=== PATIENT | female | born 1975 | race Caucasian/White ===

== ENCOUNTER → 2016-09-29 | Outpatient (CLI) | payer OTHER ==
[2016-09-29 13:51] LABS: BASO % 0.6 % (0.0-1.0); EOS # 0.2 K/mm3 (0.0-0.50); EOS % 3.5 % (0.0-3.0); LARGE UNSTAINED CELL # 0.1 K/mm3 (0.0-0.4); LARGE UNSTAINED CELL % 1.5 % (0.0-4.0); LYMPH # 2.3 K/mm3 (1.5-4.5); LYMPH % 32.6 % (24.0-44.0); MEAN CORPUSCULAR HEMOGLOBIN 32.6 pg (27.0-33.0); MEAN CORPUSCULAR HGB CONC 32.7 g/dl (32.0-36.5); MEAN CORPUSCULAR VOLUME 99.4 fl (80.0-96.0); MONO # 0.4 K/mm3 (0.0-0.8); MONO % 5.8 % (0.0-5.0); NEUTROPHILS # 3.8 K/mm3 (1.8-7.7); NEUTROPHILS % 56.2 % (36.0-66.0); PLATELET COUNT, AUTOMATED 221 k/mm3 (150-450); RED CELL DISTRIBUTION WIDTH 13.4 % (11.5-14.5); WHITE BLOOD COUNT 6.8 K/mm3 (4.0-10.0)
[2016-09-29 14:06] LABS: ALBUMIN 3.6 GM/DL (3.2-5.2); ALKALINE PHOSPHATASE 66 U/L (45-117); ALT/SGPT 17 U/L (12-78); ANION GAP 8 MEQ/L (8-16); AST/SGOT 14 U/L (15-37); BILIRUBIN,TOTAL 0.7 MG/DL (0.2-1.0); BLOOD UREA NITROGEN 14 MG/DL (7-18); CALCIUM LEVEL 8.5 MG/DL (8.5-10.1); CARBON DIOXIDE LEVEL 26 MEQ/L (21-32); CHLORIDE LEVEL 112 MEQ/L (98-107); CHOLESTEROL LEVEL 157 MG/DL (<200); CREATININE FOR GFR 0.88 MG/DL (0.55-1.02); GLOMERULAR FILTRATION RATE > 60.0 (>60); GLUCOSE, FASTING 82 MG/DL (70-105); POTASSIUM SERUM 4.9 MEQ/L (3.5-5.1); SODIUM LEVEL 146 MEQ/L (136-145); TOTAL PROTEIN 6.6 GM/DL (6.4-8.2); TRIGLYCERIDES LEVEL 85 MG/DL (<150)
== END ==
LOC: M WUC 09:20
PROVIDERS: ATTEND Physician Assistant Medical
DX: Z13.29 Encounter for screening for other suspected endocrine disorder (principal); Z13.0 Encounter for screening for diseases of the blood and blood-forming organs and certain disorders involving the immune mechanism; Z13.220 Encounter for screening for lipoid disorders

== ENCOUNTER → 2016-10-18 | Outpatient (REF) | payer OTHER | LOC: M LAB REF 09:30 | PROVIDERS: ATTEND Family Medicine | DX: Z12.4 Encounter for screening for malignant neoplasm of cervix (principal) ==

== ENCOUNTER → 2016-10-24 | Outpatient (CLI) | payer OTHER ==
--- NOTE | 2016-10-24 18:43 | REP ---
CAROTID DUPLEX ULTRASOUND: 10/24/2016: Clinical history: Left carotid bruit is suspected. Comparison: None. Findings: The right common carotid shows small amount of intimal thickening and some minimal soft plaque. The left common carotid also shows some minimal intimal thickening and trace amounts of soft plaque. No calcific plaque or shadowing noted. Peak velocities: CCA systolic right 1.39 left 1.22 M/S ICA systolic right 0.90 left 1.19 M/S ICA diastolic right 0.26 left 0.38 M/S ECA systolic right 1.38 left 1.23 M/SIC/CC ratio 0.65 right 0.98 left Cranial direction of flow seen in the vertebral arteries bilaterally. The Doppler waveform analysis shows no spectral broadening or filling of the systolic window. Impression: 1. Only minimal carotid disease with small amounts of scattered soft plaque and intimal thickening. No hemodynamically significant or flow restricting lesion identified. No calcific plaque. 2. Cranial direction of flow of vertebral arteries. Signed by Yan Crawley MD 10/27/2016 05:16 P
== END ==
LOC: M RAD 11:41
PROVIDERS: ATTEND Family Medicine
DX: R09.89 Other specified symptoms and signs involving the circulatory and respiratory systems (principal)

== ENCOUNTER → 2016-10-27 | Outpatient (REF) | payer OTHER | LOC: M LAB REF 15:28 | PROVIDERS: ATTEND Physician Assistant Medical | DX: N39.0 Urinary tract infection, site not specified (principal) ==

== ENCOUNTER → 2017-02-16 | Outpatient (REF) | payer OTHER | LOC: M LAB REF 15:23 | DX: R30.0 Dysuria (principal) ==

== ENCOUNTER → 2017-12-31 | Outpatient (CLI) | payer OTHER | LOC: M WUC 08:34 | DX: M51.87 Other intervertebral disc disorders, lumbosacral region (principal); M12.88 Other specific arthropathies, not elsewhere classified, other specified site; M54.5 Low back pain | CPT/HCPCS: 72110 ==

== ENCOUNTER → 2018-03-08 | Outpatient (CLI) | payer OTHER ==
[2018-03-08 12:21] LABS: BASO % 0.4 % (0.0-1.0); EOS # 0.2 10^3/uL (0.0-0.50); EOS % 1.5 % (0.0-3.0); HEMATOCRIT 40.6 % (36.0-47.0); HEMOGLOBIN 13.7 g/dl (12.0-15.5); LYMPH # 3.3 10^3/uL (1.5-4.5); LYMPH % 31.1 % (24.0-44.0); MEAN CORPUSCULAR HEMOGLOBIN 32.7 pg (27.0-33.0); MEAN CORPUSCULAR HGB CONC 33.7 g/dl (32.0-36.5); MEAN CORPUSCULAR VOLUME 96.9 fl (80.0-96.0); MONO # 0.7 10^3/uL (0.0-0.8); MONO % 6.2 % (0.0-5.0); NEUTROPHILS # 6.4 10^3/uL (1.8-7.7); NEUTROPHILS % 60.4 % (36.0-66.0); PLATELET COUNT, AUTOMATED 246 10^3/uL (150-450); RED BLOOD COUNT 4.19 10^6/uL (4.00-5.40); WHITE BLOOD COUNT 10.6 10^3/uL (4.0-10.0)
[2018-03-08 12:29] LABS: ALBUMIN 4.1 GM/DL (3.2-5.2); ALT/SGPT 23 U/L (12-78); BILIRUBIN,TOTAL 0.6 MG/DL (0.2-1.0); BLOOD UREA NITROGEN 15 MG/DL (7-18); CALCIUM LEVEL 9.2 MG/DL (8.5-10.1); CARBON DIOXIDE LEVEL 25 MEQ/L (21-32); CHLORIDE LEVEL 110 MEQ/L (98-107); CHOLESTEROL LEVEL 186 MG/DL (<200); CHOLESTEROL RISK RATIO 3.444 (<5); CREATININE FOR GFR 0.92 MG/DL (0.55-1.30); GLOMERULAR FILTRATION RATE > 60.0 (>58); GLUCOSE, FASTING 86 MG/DL (70-100); HDL CHOLESTEROL 54 MG/DL (>40); LDL CHOLESTEROL 116 MG/DL (<100); NON-HDL-C 132 MG/DL; POTASSIUM SERUM 4.9 MEQ/L (3.5-5.1); SODIUM LEVEL 140 MEQ/L (136-145); TOTAL PROTEIN 7.1 GM/DL (6.4-8.2); TRIGLYCERIDES LEVEL 82 MG/DL (<150)
== END ==
LOC: M SMT 08:46
PROVIDERS: ATTEND Family Medicine
DX: Z13.0 Encounter for screening for diseases of the blood and blood-forming organs and certain disorders involving the immune mechanism (principal); Z13.29 Encounter for screening for other suspected endocrine disorder; Z13.220 Encounter for screening for lipoid disorders

== ENCOUNTER → 2018-09-18 | Outpatient (CLI) | payer OTHER ==
--- NOTE | 2018-09-18 10:30 | REP ---
Clinical: Pain. Possible tendon rupture. Technique: AP, lateral, bilateral oblique and sunrise views of the left knee. Findings: Early moderate tricompartmental osteoarthritic degenerative changes include subchondral sclerosis to the tibial plateau and posterior patellar margin with associated joint space narrowing and osteophytosis. No obvious calcified loose bodies or chondrocalcinosis. No definite effusion. No acute fracture. Comer view demonstrates fraying along the anterior patellar margin consistent with tendinopathy. 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 Electronically Signed by Lucas Leija MD 09/18/2018 10:21 A
== END ==
LOC: M WUC 09:45
PROVIDERS: ATTEND Chiropractor
DX: M17.12 Unilateral primary osteoarthritis, left knee (principal); M65.862 Other synovitis and tenosynovitis, left lower leg

== ENCOUNTER → 2019-06-20 | Outpatient (CLI) | payer OTHER | LOC: M LABSMTC 12:36 | PROVIDERS: ATTEND Family Medicine | DX: Z11.59 Encounter for screening for other viral diseases (principal); Z20.828 Contact with and (suspected) exposure to other viral communicable diseases ==

== ENCOUNTER → 2019-10-29 | Outpatient (CLI) | payer OTHER ==
--- NOTE | 2019-11-17 17:31 | REP ---
RIGHT KNEE SERIES CLINICAL: Contusion. TECHNIQUE: AP, lateral, bilateral oblique, and sunrise views of the right knee. FINDINGS: Early advanced tricompartmental osteoarthritic degenerative changes are appreciated. No obvious acute fracture or dislocation. No effusion. IMPRESSION: Tricompartmental osteoarthritic changes. No obvious acute fracture or dislocation. MTDD
--- NOTE | 2019-11-17 17:32 | REP ---
LEFT HAND SERIES CLINICAL: Contusion. TECHNIQUE: AP, lateral, bilateral oblique views of the left hand. FINDINGS: Age-related degenerative changes are appreciated. No acute fracture or dislocation. No subcutaneous emphysema or foreign body. IMPRESSION: Generalized age-related degenerative changes. No acute fracture or dislocation appreciated. MTDD
--- NOTE | 2019-11-17 17:32 | REP ---
LEFT WRIST SERIES CLINICAL: Contusion. TECHNIQUE: AP, lateral, bilateral oblique views of the left wrist. FINDINGS: Generalized age-related changes are appreciated. No acute fracture or dislocation. No subcutaneous emphysema for foreign body. IMPRESSION: No obvious acute fracture or dislocation. If the patient remains symptomatic, consider reevaluation in three to five days including scaphoid view if necessary. BUNNYD
== END ==
LOC: M WUC 09:12
PROVIDERS: ATTEND Physician Assistant
DX: S60.212A Contusion of left wrist, initial encounter (principal); S80.01XA Contusion of right knee, initial encounter; Y92.9 Unspecified place or not applicable; Y93.9 Activity, unspecified; Y99.9 Unspecified external cause status

== ENCOUNTER 2020-06-19 15:33 | Emergency (ER) | payer OTHER ==
[~2020-06-19] VITALS: Ht 175.3 cm; Wt 104.5 kg
--- NOTE | 2020-06-19 16:22 | REP ---
INDICATION: rolled [employer] COMPARISON: None. TECHNIQUE: AP, lateral, bilateral oblique views. FINDINGS: Soft tissue swelling. Generalized age-related changes. A corticated bony fragment is identified at the tip of the medial malleolus which should be correlated with physical examination and point of tenderness as acute versus old fracture cannot be differentiated. IMPRESSION: Soft tissue swelling. Cannot exclude small acute versus chronic medial malleolar fracture. <Electronically signed by Lucas Leija > 06/19/20 [id number]
--- NOTE | 2020-06-19 16:23 | REP ---
INDICATION: rolled ankle pain above COMPARISON: None. TECHNIQUE: AP and lateral views of the left tibia/fibula. FINDINGS: Degenerative changes at the knee and ankle joint noted. No obvious acute fracture or dislocation identified. IMPRESSION: No obvious acute fracture or dislocation identified. <Electronically signed by Lucas Leija > 06/19/20 [id number]
[2020-06-19 18:02] VITALS: BP 151/83
== END 2020-06-19 18:12 | disposition home or self-care (01) ==
LOC: M ED 15:33
DX: S82.55XA Nondisplaced fracture of medial malleolus of left tibia, initial encounter for closed fracture (principal); M25.572 Pain in left ankle and joints of left foot; X50.1XXA Overexertion from prolonged static or awkward postures, initial encounter; Y92.89 Other specified places as the place of occurrence of the external cause; Y93.9 Activity, unspecified; Y99.0 Civilian activity done for income or pay; Z88.8 Allergy status to other drugs, medicaments and biological substances

== ENCOUNTER → 2020-07-08 | Outpatient (CLI) | payer OTHER ==
--- NOTE | 2020-07-09 01:23 | REP ---
INDICATION: F/U. COMPARISON: 06/19/2020 TECHNIQUE: AP, lateral, bilateral oblique views of the left ankle. FINDINGS: Corticated fragment at the medial malleolus and tiny fragment not visible on prior examination along the lateral aspect of the calcaneus just below the fibular tip identified. Underlying chronic age-related changes noted. The above-mentioned fragments may represent subtle subacute versus chronic changes. No obvious acute fracture identified. Ankle mortise appears stable. IMPRESSION: Degenerative changes and possible old (less likely representing subacute) fracture. <Electronically signed by Lucas Leija > 07/09/20 [id number]
== END ==
LOC: M SOG 14:10
PROVIDERS: ATTEND Orthopaedic Surgery Sports Medicine
DX: S93.432D Sprain of tibiofibular ligament of left ankle, subsequent encounter (principal); X58.XXXD Exposure to other specified factors, subsequent encounter; Y92.9 Unspecified place or not applicable

== ENCOUNTER → 2021-01-24 | Outpatient (REF) | payer OTHER | LOC: M LAB REF 19:01 | PROVIDERS: ATTEND Family Medicine | DX: J06.9 Acute upper respiratory infection, unspecified (principal) ==

== ENCOUNTER 2021-03-28 10:58 | Emergency (ER) | payer OTHER ==
[~2021-03-28] VITALS: Ht 175.3 cm; Wt 104.5 kg
[2021-03-28 12:17] LABS: BASO # 0.1 10^3/uL (0.0-0.2); BASO % 0.5 % (0.0-1.0); EOS # 0.3 10^3/uL (0.0-0.5); EOS % 3.4 % (0.0-3.0); HEMATOCRIT 39.6 % (36.0-47.0); HEMOGLOBIN 12.9 g/dl (12.0-15.5); LYMPH # 2.3 10^3/uL (1.5-5.0); LYMPH % 25.2 % (24.0-44.0); MEAN CORPUSCULAR HEMOGLOBIN 32.2 pg (27.0-33.0); MEAN CORPUSCULAR HGB CONC 32.6 g/dl (32.0-36.5); MEAN CORPUSCULAR VOLUME 98.8 fl (80.0-96.0); MONO # 0.6 10^3/uL (0.0-0.8); MONO % 6.8 % (2.0-8.0); NEUTROPHILS # 5.9 10^3/uL (1.5-8.5); NEUTROPHILS % 63.8 % (36.0-66.0); PLATELET COUNT, AUTOMATED 248 10^3/uL (150-450); RED BLOOD COUNT 4.01 10^6/uL (4.00-5.40); WHITE BLOOD COUNT 9.2 10^3/uL (4.0-10.0)
[2021-03-28 12:44] LABS: ALBUMIN 3.4 GM/DL (3.2-5.2); ALT/SGPT 18 U/L (12-78); BILIRUBIN,TOTAL 0.2 MG/DL (0.2-1.0); BLOOD UREA NITROGEN 10 MG/DL (7-18); CALCIUM LEVEL 8.9 MG/DL (8.5-10.1); CARBON DIOXIDE LEVEL 27 MEQ/L (21-32); CHLORIDE LEVEL 112 MEQ/L (98-107); CREATININE FOR GFR 0.82 MG/DL (0.55-1.30); GLOMERULAR FILTRATION RATE > 60.0 (>58); GLUCOSE, FASTING 104 MG/DL (70-100); POTASSIUM SERUM 3.9 MEQ/L (3.5-5.1); SODIUM LEVEL 144 MEQ/L (136-145); TOTAL PROTEIN 6.4 GM/DL (6.4-8.2)
[2021-03-28] MEDS ORDERED: MECLIZINE 25 MG TABLET PO ONE (12:45)
[2021-03-28 12:52] LABS: HCG, SERUM QUALITATIVE NEGATIVE (NEGATIVE)
[2021-03-28 17:45] VITALS: BP 140/72
[2021-03-28] MEDS ORDERED: MECL1TAB31 PO (18:05)
== END 2021-03-28 18:28 | disposition home or self-care (01) ==
LOC: M ED 10:58
DX: R42 Dizziness and giddiness (principal); F17.200 Nicotine dependence, unspecified, uncomplicated; Z88.8 Allergy status to other drugs, medicaments and biological substances

== ENCOUNTER 2023-02-04 13:54 | Emergency (ER) | payer OTHER ==
[~2023-02-04] VITALS: Ht 175.3 cm; Wt 109.1 kg
[~2023-02-04 13:54] MED LIST: MECL-209 PO
[2023-02-04 13:55] VITALS: TEMP 97.9
[2023-02-04 14:27] LABS: BASO # 0.1 10^3/uL (0.0-0.2); BASO % 0.7 % (0.0-1.0); EOS # 0.2 10^3/uL (0.0-0.5); EOS % 2.1 % (0.0-3.0); HEMATOCRIT 39.1 % (36.0-47.0); HEMOGLOBIN 13.1 g/dl (12.0-15.5); LYMPH # 3.1 10^3/uL (1.5-5.0); LYMPH % 31.5 % (24.0-44.0); MEAN CORPUSCULAR HEMOGLOBIN 32.7 pg (27.0-33.0); MEAN CORPUSCULAR HGB CONC 33.5 g/dl (32.0-36.5); MEAN CORPUSCULAR VOLUME 97.5 fl (80.0-96.0); MONO # 0.5 10^3/uL (0.0-0.8); MONO % 5.4 % (2.0-8.0); NEUTROPHILS # 5.9 10^3/uL (1.5-8.5); PLATELET COUNT, AUTOMATED 292 10^3/uL (150-450); RED BLOOD COUNT 4.01 10^6/uL (4.00-5.40); WHITE BLOOD COUNT 9.8 10^3/uL (4.0-10.0)
[2023-02-04 14:38] LABS: INR 0.96; PROTHROMBIN TIME 12.5 SECONDS (12.5-14.5)
[2023-02-04 14:51] LABS: CK-MB VALUE MASS < 1.0 NG/ML (<3.6); LIPASE 28 U/L (12-53)
[2023-02-04 14:54] LABS: ALBUMIN 3.9 G/DL (3.2-5.2); ALKALINE PHOSPHATASE 83 U/L (46-116); ALT/SGPT 16 U/L (7.0-40); AST/SGOT 12 U/L (<34); BILIRUBIN,DIRECT 0.1 MG/DL (<0.4); BILIRUBIN,TOTAL 0.3 MG/DL (0.3-1.2); BLOOD UREA NITROGEN 14 MG/DL (9-23); CALCIUM LEVEL 9.1 MG/DL (8.5-10.1); CARBON DIOXIDE LEVEL 21 MMOL/L (20-31); CHLORIDE LEVEL 111 MMOL/L (98-107); CREATININE FOR GFR 0.73 MG/DL (0.55-1.30); GLOMERULAR FILTRATION RATE > 60.0 (>58); GLUCOSE, FASTING 91 MG/DL (60-100); POTASSIUM SERUM 4.1 MMOL/L (3.5-5.1); SODIUM LEVEL 142 MMOL/L (136-145); TOTAL PROTEIN 6.8 G/DL (5.7-8.2)
[2023-02-04 14:55] LABS: FREE T4 0.88 NG/DL (0.89-1.76)
[2023-02-04 14:56] LABS: THYROID STIMULATING HORMONE 2.121 uIU/ML (0.55-4.78)
[2023-02-04 15:09] LABS: CPK CREATINE PHOSPHOKINASE 71 U/L (34-145)
[2023-02-04 15:56] LABS: CK-MB VALUE MASS < 1.0 NG/ML (<3.6)
[2023-02-04 16:01] LABS: CPK CREATINE PHOSPHOKINASE 66 U/L (34-145); MB/CK RELATIVE INDEX 1.51 (< OR =4)
[2023-02-04] MEDS ORDERED: HOLTER MONITOR XX (16:26)
[2023-02-04 16:30] VITALS: BP 147/68; O2SAT 99
== END 2023-02-04 16:43 | disposition home or self-care (01) ==
LOC: M ED 13:54
DX: R42 Dizziness and giddiness (principal); R00.2 Palpitations; F17.200 Nicotine dependence, unspecified, uncomplicated; F10.10 Alcohol abuse, uncomplicated; Z88.8 Allergy status to other drugs, medicaments and biological substances

== ENCOUNTER → 2023-02-05 | Outpatient (CLI) | payer OTHER ==
[~2023-02-05] MED LIST changes: +HOLTER MONITOR XX
== END ==
LOC: M EKG 11:35
PROVIDERS: ATTEND Emergency Medicine
DX: R00.2 Palpitations (principal)

== ENCOUNTER → 2023-05-09 | Outpatient (CLI) | payer OTHER | LOC: M PLAIMG 13:32 | PROVIDERS: ATTEND Family Medicine | DX: R01.1 Cardiac murmur, unspecified (principal) ==

== ENCOUNTER → 2024-05-08 | Outpatient (CLI) | payer OTHER ==
[2024-05-08 15:14] LABS: BASO # 0.1 10^3/uL (0.0-0.2); BASO % 0.8 % (0.0-1.0); EOS # 0.3 10^3/uL (0.0-0.5); EOS % 3.1 % (0.0-3.0); HEMOGLOBIN 13.4 g/dl (12.0-15.5); LYMPH # 3.8 10^3/uL (1.5-5.0); LYMPH % 34.3 % (24.0-44.0); MEAN CORPUSCULAR HEMOGLOBIN 32.5 pg (27.0-33.0); MEAN CORPUSCULAR HGB CONC 32.7 g/dl (32.0-36.5); MEAN CORPUSCULAR VOLUME 99.5 fl (80.0-96.0); MONO # 0.8 10^3/uL (0.0-0.8); MONO % 7.6 % (2.0-8.0); NEUTROPHILS # 5.9 10^3/uL (1.5-8.5); NEUTROPHILS % 53.7 % (36.0-66.0); PLATELET COUNT, AUTOMATED 291 10^3/uL (150-450); RED BLOOD COUNT 4.12 10^6/uL (4.00-5.40)
[2024-05-08 15:20] LABS: ALBUMIN 3.7 G/DL (3.2-5.2); ALKALINE PHOSPHATASE 87 U/L (35-104); ALT/SGPT 13 U/L (7.0-40); AST/SGOT 10 U/L (<34); BILIRUBIN,TOTAL 0.5 MG/DL (0.3-1.2); BLOOD UREA NITROGEN 12 MG/DL (9-23); CALCIUM LEVEL 9.2 MG/DL (8.5-10.1); CARBON DIOXIDE LEVEL 25 MMOL/L (20-31); CHLORIDE LEVEL 110 MMOL/L (98-107); CHOLESTEROL LEVEL 177 MG/DL (<200); CHOLESTEROL RISK RATIO 4.51 (<5); CREATININE FOR GFR 0.82 MG/DL (0.55-1.30); GLOMERULAR FILTRATION RATE > 60.0 (>58); GLUCOSE, FASTING 91 MG/DL (60-100); HDL CHOLESTEROL 39.2 MG/DL (>40); LDL CHOLESTEROL 102.6 MG/DL (<100); NON-HDL-C 137.8 MG/DL; POTASSIUM SERUM 4.5 MMOL/L (3.5-5.1); SODIUM LEVEL 145 MMOL/L (136-145); TOTAL PROTEIN 6.8 G/DL (5.7-8.2); TRIGLYCERIDES LEVEL 176 MG/DL (<150)
[2024-05-08 15:25] LABS: THYROID STIMULATING HORMONE 2.477 uIU/ML (0.55-4.78)
[2024-05-08 15:26] LABS: FREE T4 0.97 NG/DL (0.89-1.76)
== END ==
LOC: M WUC 08:07
PROVIDERS: ATTEND Family Medicine
DX: Z13.220 Encounter for screening for lipoid disorders (principal); Z13.29 Encounter for screening for other suspected endocrine disorder; Z13.0 Encounter for screening for diseases of the blood and blood-forming organs and certain disorders involving the immune mechanism

== ENCOUNTER → 2024-05-26 | Outpatient (CLI) | payer OTHER | LOC: M WHC 12:53 | PROVIDERS: ATTEND Family Medicine | DX: Z12.31 Encounter for screening mammogram for malignant neoplasm of breast (principal); R92.323 Mammographic fibroglandular density, bilateral breasts ==